=== PATIENT | male | born 1995 | race Caucasian/White ===

== ENCOUNTER 2023-02-03 11:20 | Day surgery (SDC) | payer BC ==
[~2023-02-03] VITALS: Ht 162.6 cm; Wt 95.7 kg
[~2023-02-03 11:20] MED LIST: ALLE24TA7 PO; ALLE60TA69 PO; AZEL0.055 NARES; CITA10TA7 PO; FLON1SPR; LIDOCAINE 2% 100MG/5ML SDV (FOR ANES.) As Ordered ONE; NS 1,000 ML IV ONE; VITMTA PO; propofoL 200 MG/20 ML VIAL As Ordered ONE
[2023-02-03] MEDS ORDERED: fentaNYL 100 MCG/2 ML INJECTION As Ordered ONE (12:36)
[2023-02-03 13:45] VITALS: TEMP 97.8
[2023-02-03 14:05] VITALS: BP 136/85; O2SAT 99
== END 2023-02-03 14:18 | disposition home or self-care (01) ==
LOC: M OPP 11:20
PROVIDERS: ATTEND Internal Medicine Gastroenterology
DX: R19.4 Change in bowel habit (principal); R12 Heartburn; K21.9 Gastro-esophageal reflux disease without esophagitis; F41.9 Anxiety disorder, unspecified; J30.9 Allergic rhinitis, unspecified; Z79.899 Other long term (current) drug therapy; Z83.2 Family history of diseases of the blood and blood-forming organs and certain disorders involving the immune mechanism; Z80.0 Family history of malignant neoplasm of digestive organs; Z80.1 Family history of malignant neoplasm of trachea, bronchus and lung
CPT/HCPCS: 43235; 45378; J3010